=== PATIENT | male | born 1975 | race Caucasian/White ===

== ENCOUNTER 2016-08-03 19:37 | Emergency (ER) | payer SELFPAY ==
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
== END 2016-08-03 21:10 | disposition home or self-care (01) ==
LOC: ER 19:37
DX: S29.011A Strain of muscle and tendon of front wall of thorax, initial encounter (principal); R91.1 Solitary pulmonary nodule; V89.2XXA Person injured in unspecified motor-vehicle accident, traffic, initial encounter

== ENCOUNTER → 2016-11-03 | Outpatient (CLI) | payer SELFPAY | END | disposition home or self-care (01) | LOC: RAD.S 15:43 | DX: R91.8 Other nonspecific abnormal finding of lung field (principal); R91.1 Solitary pulmonary nodule ==